=== PATIENT | female | born 1985 | race Two or more races ===

== ENCOUNTER 2021-01-01 19:38 | Inpatient (IN) | payer SELFPAY ==
[~2021-01-01] VITALS: Ht 154.9 cm; Wt 68.5 kg
[2021-01-01] MEDS ORDERED: GLUCOPHAGE1000 MG PO (19:51)
[2021-01-01 21:43] LABS: BASOPHILS 0.1 % (0-2); EOSINOPHILS 0.2 % (0-7); HEMATOCRIT 42.3 % (36.0-48.0); HEMOGLOBIN 14.1 g/dL (12-16); IMMATURE GRANULOCYTES 0.5 % (0-5); LYMPHOCYTE ABS# 2.07 10x3/uL (1.18-3.74); LYMPHOCYTES 12.7 % (15-50); MCH 29.8 pg (26.0-34.0); MCHC 33.3 g/dL (31.0-37.0); MCV 89.4 fL (80.0-100.0); MEAN PLATELET VOLUME 10.1 fL (7.4-10.4); MONOCYTES 7.4 % (2-11); NEUTROPHIL ABS# 12.89 10x3/uL (1.56-6.13); NEUTROPHILS 79.1 % (40-80); PLATELET COUNT 300 10x3/uL (130-400); RBC 4.73 10x6/uL (4.00-5.40); RDW 12.3 % (11.5-14.5); WBC 16.3 10x3/uL (4.8-10.8)
[2021-01-01 21:49] LABS: CALC OSMOLALITY 272 mosm/kg (275-300); CALCIUM 8.5 mg/dL (8.5-10.1); CARBON DIOXIDE 27.9 mmol/L (21.0-32.0); CHLORIDE - SERUM 94 mmol/L (98-107); CREATININE - SERUM 0.7 mg/dL (0.6-1.3); GLUCOSE 363 mg/dL (74-106); POTASSIUM - SERUM 3.8 mmol/L (3.5-5.1); SODIUM 129 mmol/L (136-145); UREA NITROGEN 10 mg/dL (7-18); eGFR NON AFRICAN AMERICAN > 90 mL/min (90-120)
[2021-01-01 21:55] LABS: ALBUMIN 3.3 g/dL (3.4-5.0); ALKALINE PHOSPHATASE 108 U/L (30-120); ALT (SGPT) 21 U/L (10-68); PROTEIN - SERUM 8.4 g/dL (6.4-8.2)
[2021-01-01 22:50] LABS: APTT 29.7 SECONDS (22.8-39.4); INR 1.07 (0.85-1.17); PROTIME 12.9 SECONDS (11.6-15.0)
[2021-01-02] VITALS (8 sets, daily range): BP systolic 98–141; BP diastolic 59–75; BMI 28.6
[2021-01-02 00:09] LABS: BILIRUBIN NEGATIVE (NEGATIVE); KETONE LARGE mg/dL (NEGATIVE); NITRITE NEGATIVE (NEGATIVE); UROBILINOGEN NORMAL mg/dL (< 2)
[2021-01-02 00:11] LABS: HCG URINE NEGATIVE (NEGATIVE)
--- NOTE | 2021-01-02 01:48 | NUR ---
GLUCOSE 236
--- NOTE | 2021-01-02 02:38 | NUR ---
CALLED MED/SURG TO GIVE REPORT AND WAS TOLD FLOOR TO ROOM IS BLOCKED ALSO CALLED AT 01:55
--- NOTE | 2021-01-02 03:00 | NUR ---
I have reviewed this patient and I concur with the Shift Assessment completed by the Licensed Practical Nurse today this shift.
--- NOTE | 2021-01-02 03:03 | NUR ---
PATIENT STATED THAT IT FELT LIKE HER SUGAR HAD DROPPED AND REQUESTED A SNACK. GLUCOSE CHECKED 222.
[2021-01-02 06:53] LABS: BASOPHILS 0.1 % (0-2); EOSINOPHILS 0.2 % (0-7); IMMATURE GRANULOCYTES 0.3 % (0-5); LYMPHOCYTE ABS# 2.36 10x3/uL (1.18-3.74); MCH 29.6 pg (26.0-34.0); MCHC 32.7 g/dL (31.0-37.0); MCV 90.5 fL (80.0-100.0); MEAN PLATELET VOLUME 9.8 fL (7.4-10.4); MONOCYTES 8.5 % (2-11); NEUTROPHIL ABS# 12.92 10x3/uL (1.56-6.13); NEUTROPHILS 76.9 % (40-80); PLATELET COUNT 299 10x3/uL (130-400); RDW 12.3 % (11.5-14.5); WBC 16.8 10x3/uL (4.8-10.8)
[2021-01-02 06:54] LABS: HEMATOCRIT 30.6 % (36.0-48.0); RBC 3.38 10x6/uL (4.00-5.40)
[2021-01-02 07:26] LABS: ALBUMIN 2.5 g/dL (3.4-5.0); ALKALINE PHOSPHATASE 80 U/L (30-120); BILIRUBIN - TOTAL 0.38 mg/dL (0.2-1.3); CALCIUM 7.9 mg/dL (8.5-10.1); CARBON DIOXIDE 25.5 mmol/L (21.0-32.0); CHLORIDE - SERUM 102 mmol/L (98-107); CREATININE - SERUM 0.6 mg/dL (0.6-1.3); MAGNESIUM - SERUM 1.7 mg/dL (1.8-2.4); PHOSPHOROUS 2.7 mg/dL (2.5-4.9); POTASSIUM - SERUM 3.7 mmol/L (3.5-5.1); PROTEIN - SERUM 6.5 g/dL (6.4-8.2); SODIUM 135 mmol/L (136-145); eGFR NON AFRICAN AMERICAN > 90 mL/min (90-120)
[2021-01-02 07:27] LABS: ALT (SGPT) 15 U/L (10-68); CALC OSMOLALITY 275 mosm/kg (275-300); GLUCOSE 248 mg/dL (74-106); UREA NITROGEN 6 mg/dL (7-18)
[2021-01-02 08:06] LABS: INR 1.15 (0.85-1.17); PROTIME 13.6 SECONDS (11.6-15.0)
[2021-01-02 08:07] LABS: APTT 30.6 SECONDS (22.8-39.4)
--- NOTE | 2021-01-02 18:46 | NUR ---
SPOKE WITH INGE SELBY WITH NEPHROLOGY. WAS TOLD TO PLACE
--- NOTE | 2021-01-02 19:10 | NUR ---
RECEIVED REPORT, ASSUMED CARE, BREATHING EVEN UNLABORED, CALL LIGHT IN REACH, BED LOWEST POSITION, DENIES NEEDS, NO S/S OF DISTRESS NOTED, ENCOURAGED PT TO NOTIFY STAFF OF ANY NEEDS, IV SL, PT IN SHOWER
--- NOTE | 2021-01-03 01:33 | NUR ---
I have reviewed this patient and I concur with the Shift Assessment completed by the Licensed Practical Nurse today this shift.
--- NOTE | 2021-01-03 07:27 | NUR ---
DR ARNETT SPOUSE CALLED ION REGARDS TO PATIENT AND PLAN OF CARE, NO CODE ON ACCOUNT, WENT AND ASKED MS REMY IF OK FOR ME TO SPEAK TO MRS. GEORGE. PER PATIENT OK TO GIVE INFORMATION. PER DR PETER'S NOTES PATIENT CAN BE DC ON ABX ONCE ABSCESS IS LANCED. WILL CONTINUE WITH PLAN OF CARE
[2021-01-03 08:01] LABS: BASOPHILS 0.1 % (0-2); CALC OSMOLALITY 281 mosm/kg (275-300); CALCIUM 8.3 mg/dL (8.5-10.1); CARBON DIOXIDE 29.7 mmol/L (21.0-32.0); CHLORIDE - SERUM 104 mmol/L (98-107); CREATININE - SERUM 0.6 mg/dL (0.6-1.3); EOSINOPHILS 0.5 % (0-7); GLUCOSE 212 mg/dL (74-106); HEMATOCRIT 35.9 % (36.0-48.0); HEMOGLOBIN 11.3 g/dL (12-16); IMMATURE GRANULOCYTES 0.4 % (0-5); LYMPHOCYTE ABS# 1.94 10x3/uL (1.18-3.74); LYMPHOCYTES 13.3 % (15-50); MCHC 31.5 g/dL (31.0-37.0); MCV 92.1 fL (80.0-100.0); MEAN PLATELET VOLUME 9.6 fL (7.4-10.4); MONOCYTES 8.2 % (2-11); NEUTROPHIL ABS# 11.33 10x3/uL (1.56-6.13); NEUTROPHILS 77.5 % (40-80); PHOSPHOROUS 2.7 mg/dL (2.5-4.9); PLATELET COUNT 275 10x3/uL (130-400); POTASSIUM - SERUM 3.4 mmol/L (3.5-5.1); RDW 12.4 % (11.5-14.5); SODIUM 139 mmol/L (136-145); UREA NITROGEN 7 mg/dL (7-18); WBC 14.6 10x3/uL (4.8-10.8); eGFR NON AFRICAN AMERICAN > 90 mL/min (90-120)
[2021-01-03 08:02] LABS: MAGNESIUM - SERUM 2.4 mg/dL (1.8-2.4)
[2021-01-03 08:35] VITALS: BP 101/57
[2021-01-03 11:27] VITALS: BP 139/57
--- NOTE | 2021-01-03 11:59 | NUR ---
PLACED I/S IN PATIENT ROOM AND EDUCATED PATIENT ON USE AND PURPOSE, PATIENT REDEMONSTRATED TECHNIQUE, QUESTIONS ANSWERED. CONTINUE WITH PLAN OF CARE
[2021-01-03 15:21] VITALS: Ht 154.9 cm; Wt 68.5 kg
[2021-01-03 17:08] LABS: INFLUENZA TYPE A NEGATIVE (NEGATIVE); INFLUENZA TYPE B NEGATIVE (NEGATIVE); SARS-CoV-2 ANTIGEN NEGATIVE- SARS-COV-2 (NEGATIVE)
--- NOTE | 2021-01-03 17:57 | NUR ---
PATIENT IN TEARS THAT SHE HAS TO GO TO MED 2. STATES SHE IS SCARED AND DOES NOT WANT TO . SPOKE TO PATIENT ABOUT HER FEARS AND REASSURED HER THAT SHE WILL BE VERY WELL TAKEN CARE OF ON MED2 AND WILL BE BACK ON MS OR DC BEFORE SHE REALIZES IT. PATIENT ABX RUNNING AND WILL HAVE PT MOVED OVER SOON DONE. CONTINUE WITH PLAN OF CARE
--- NOTE | 2021-01-03 19:00 | NUR ---
LYING IN BED AWAKE, ALERT, ORIENTED. RESP EVEN AND UNLABORED ON RA. NO DISTRESS NOTED, DENIES ANY NEEDS.
[2021-01-03 19:27] LABS: BILIRUBIN NEGATIVE (NEGATIVE); KETONE NEGATIVE (NEGATIVE); NITRITE NEGATIVE (NEGATIVE); UROBILINOGEN NORMAL mg/dL (< 2)
[2021-01-03 20:00] VITALS: BP 109/62
--- NOTE | 2021-01-03 20:10 | NUR ---
TYLENOL ADMINISTERED FOR TEMP 101.1, PT DENIES ANY FURTHER NEEDS.
--- NOTE | 2021-01-03 21:13 | NUR ---
PT HAD SHOWER AND BED LINEN CHANGED--DRESSING TO LEFT SHOULDER CHANGED--NEW DRESSING APPLIED--PT TOLERATED ALL WELL. DENIES ANY FURTHER NEEDS.
[2021-01-04] VITALS: BP 109/66
[2021-01-04 04:00] VITALS: BP 101/60
[2021-01-04 04:49] LABS: BASOPHILS 0.2 % (0-2); EOSINOPHILS 0.6 % (0-7); HEMATOCRIT 31.6 % (36.0-48.0); HEMOGLOBIN 10.1 g/dL (12-16); IMMATURE GRANULOCYTES 0.4 % (0-5); LYMPHOCYTE ABS# 2.15 10x3/uL (1.18-3.74); LYMPHOCYTES 17.2 % (15-50); MCH 29.2 pg (26.0-34.0); MCV 91.3 fL (80.0-100.0); MEAN PLATELET VOLUME 9.7 fL (7.4-10.4); MONOCYTES 8.4 % (2-11); NEUTROPHIL ABS# 9.15 10x3/uL (1.56-6.13); NEUTROPHILS 73.2 % (40-80); PLATELET COUNT 259 10x3/uL (130-400); RBC 3.46 10x6/uL (4.00-5.40); RDW 12.3 % (11.5-14.5); WBC 12.5 10x3/uL (4.8-10.8)
[2021-01-04 05:14] LABS: CALC OSMOLALITY 278 mosm/kg (275-300); CALCIUM 8.3 mg/dL (8.5-10.1); CARBON DIOXIDE 27.9 mmol/L (21.0-32.0); CHLORIDE - SERUM 104 mmol/L (98-107); CREATININE - SERUM 0.6 mg/dL (0.6-1.3); GLUCOSE 185 mg/dL (74-106); MAGNESIUM - SERUM 2.1 mg/dL (1.8-2.4); POTASSIUM - SERUM 3.8 mmol/L (3.5-5.1); SODIUM 138 mmol/L (136-145); UREA NITROGEN 6 mg/dL (7-18); eGFR NON AFRICAN AMERICAN > 90 mL/min (90-120)
[2021-01-04 05:18] LABS: PHOSPHOROUS 3.9 mg/dL (2.5-4.9)
--- NOTE | 2021-01-04 05:33 | NUR ---
LYING IN BED AWAKE, ALERT, ORIENTED. RESP EVEN AND UNLABORED ON RA. NO DISTRESS NOTED, LAB IN ROOM TO DRAW AM LAB WORK.
--- NOTE | 2021-01-04 07:00 | NUR ---
patient is sitting up in bed this am. plan of care reviewed and assessment have been completed. med student in room looking at patient's abcess on left shoulder. orders nurse to change dressing on shoulder. am meds given and insulin given for 182 fsbs. patient denies pain. water given to drink. call light in reach. nad noted
[2021-01-04 07:59] VITALS: BP 106/65
--- NOTE | 2021-01-04 09:09 | NUR ---
NURSE RESTARTS PATIENT'S IV TO RIGHT AC. PT ALSO GIVEN PRN MORPHINE AFTER MD PUSHES A LOT OF PUS OUT OF PATIENT'S ABCESS. PATIENT IS CRYING AND IN 10/10 PAIN. NURSE RESTARTS IV FLUID. CALL LIGHT IN REACH
[2021-01-04 11:00] VITALS: BP 104/63
--- NOTE | 2021-01-04 11:01 | NUR ---
NURSE COMPLETES FSBS AND COVID SWAB AT THIS TIME
--- NOTE | 2021-01-04 17:16 | NUR ---
NURSE CHECKS PATIENT'S FSBS BUT UNABLE TO DOCUMENT DUE TO ORDER CHANGING AND IT BEING DUE AT 2100
--- NOTE | 2021-01-04 19:10 | NUR ---
LYING IN BED AWAKE, ALERT, ORIENTED. RESP EVEN AND UNLABORED ON RA. BANDAGE TO LEFT SHOULDER C/D/I. PT REQUEST PAIN MED. NO FURTHER NEEDS VOICED AT THIS TIME.
--- NOTE | 2021-01-04 19:34 | NUR ---
MORPHINE ADMINISTERED FOR C/O PAIN SEE MAR--
[2021-01-04 20:00] VITALS: BP 99/56
[2021-01-05 04:00] VITALS: BP 99/62
[2021-01-05 05:41] LABS: BASOPHILS 0.2 % (0-2); EOSINOPHILS 1.4 % (0-7); HEMATOCRIT 31.7 % (36.0-48.0); HEMOGLOBIN 10.1 g/dL (12-16); IMMATURE GRANULOCYTES 0.4 % (0-5); LYMPHOCYTE ABS# 3.06 10x3/uL (1.18-3.74); LYMPHOCYTES 28.2 % (15-50); MCHC 31.9 g/dL (31.0-37.0); MCV 91.1 fL (80.0-100.0); MEAN PLATELET VOLUME 9.5 fL (7.4-10.4); MONOCYTES 8.7 % (2-11); NEUTROPHIL ABS# 6.65 10x3/uL (1.56-6.13); NEUTROPHILS 61.1 % (40-80); PLATELET COUNT 292 10x3/uL (130-400); RBC 3.48 10x6/uL (4.00-5.40); RDW 12.2 % (11.5-14.5); WBC 10.9 10x3/uL (4.8-10.8)
[2021-01-05 06:00] LABS: CALC OSMOLALITY 273 mosm/kg (275-300); CALCIUM 8.5 mg/dL (8.5-10.1); CARBON DIOXIDE 28.6 mmol/L (21.0-32.0); CHLORIDE - SERUM 101 mmol/L (98-107); CREATININE - SERUM 0.6 mg/dL (0.6-1.3); GLUCOSE 173 mg/dL (74-106); MAGNESIUM - SERUM 2.1 mg/dL (1.8-2.4); PHOSPHOROUS 4.1 mg/dL (2.5-4.9); POTASSIUM - SERUM 3.5 mmol/L (3.5-5.1); SODIUM 136 mmol/L (136-145); UREA NITROGEN 8 mg/dL (7-18); eGFR NON AFRICAN AMERICAN > 90 mL/min (90-120)
--- NOTE | 2021-01-05 07:10 | NUR ---
LYING IN BED, AWAKE/ALERT/ORIENTED, T/R SELF AD PAPITO, CONT OF B/B WITH BRPs PER SELF AD PAPITO, DENIES PAIN/OTHER DISCOMFORT, DRESSING TO POSTERIOR LEFT SHOULDER C/D/I, CALL LIGHT/PHONE/WATER WITHIN REACH, NO S/S OF ACUTE DISTRESS OBSERVED.
[2021-01-05 08:00] VITALS: BP 102/62
[2021-01-05] MEDS ORDERED: ADOXA100 MG PO (09:18)
--- NOTE | 2021-01-05 09:44 | NUR ---
Received discharge orders. I called the patient's room to discuss discharge needs. She states she lives with her brother. States either her uncle or her CHULA will take her home. I verified her address. She states she understands wound care. Dr Vidal is her PCP. States she uses [facility] on [address] for her pharmacy. State she does not have any DME or need any. Denies needs. Home today.
--- NOTE | 2021-01-05 12:10 | NUR ---
Nutrition Follow-up: Good PO intake reported. Noted plans to d/c today. Diet: Diabetic No new wt; last wt: 151# (01/03) Labs noted: Glu 173 Meds noted: Humalog, Florajen, Protonix, NS @ 100, electrolyte protocol -Written information (Vietnamese) on diabetic diet was provided on 01/03. -RD will follow up within 5-7 days if pt still admitted.
--- NOTE | 2021-01-05 13:08 | NUR ---
PROVIDED WRITTEN/VERBAL DISCHARGE INSTRUCTIONS TO WHICH PT VERBALIZED UNDERSTANDING AFTER ASKING SOME CLARIFYING QUESTIONS REGARDING WOUNDCARE, DISCONTINUED IV ACCESS AT THIS TIME.
--- NOTE | 2021-01-05 14:00 | NUR ---
DISCHARGED HOME TO SELF CARE IN STABLE CONDITION VIA W/C ACCOMPANIED BY HOSPITAL STAFF, NO S/S OF ACUTE DISTRESS OBSERVED.
== END 2021-01-05 14:00 | disposition home or self-care (01) | DRG 638 ==
LOC: D.ER 19:38 → D.M2 22:40 → D.EDHOLD 22:40 → D.MS 22:40 → D.M2 01-03 18:11
PROVIDERS: Family Medicine; Family Medicine Adult Medicine; ADMIT Family Medicine; ATTEND Family Medicine
PROC: 0J9F3ZZ Drainage of Left Upper Arm Subcutaneous Tissue and Fascia, Percutaneous Approach (ICD-10-PCS; principal; 2021-01-02)
DX: E11.628 Type 2 diabetes mellitus with other skin complications (principal); L03.114 Cellulitis of left upper limb; E87.1 Hypo-osmolality and hyponatremia; L02.414 Cutaneous abscess of left upper limb; E11.65 Type 2 diabetes mellitus with hyperglycemia; Z20.822 Contact with and (suspected) exposure to COVID-19